=== PATIENT | male | born 1975 | race Two or more races ===

== ENCOUNTER 2024-10-10 22:16 | Inpatient (IN) | payer MEDICAID, SELFPAY ==
[2024-10-10 22:19] VITALS: BMI 34.4
--- NOTE | 2024-10-10 22:26 | PD.EDNEURO ---
Neuro Symptoms Deficit-RME/HPI General Chief Complaint: Chest Pain Stated Complaint: CP W/LEFT SIDED FACE/ARM/LEG NUMBESS TINGLING Time Seen by Provider: 10/10/24 23:01 Source: patient Arrival date/time: 10/10/24 22:16 Mode of arrival: ambulatory RME / HPI RME / HPI Narrative: DR. HERNANDEZ MAIN ED EVALUATION: 48 [id number] male with history of diabetes and hypertension presenting to the emergency department with slow onset of left arm tingling followed by left face tingling. The patient states he then had mid sternal chest pain sharp in nature without radiation. The patient took 2 baby aspirin and 15 minutes later the chest pain improved however the left-sided face arm and leg numbness continued Patient denied any weakness or difficulty speaking. He was able to take a shower and otherwise had no difficulty ambulating. LKN: 9 PM. Patient denies blood thinners. Symptoms were associated with nausea and dizziness. Prior to arrival the patient took 2 baby aspirin. No facial droop. Following all commands. GCS 15. -PMH: Hypertension, diabetes FH :mother with diabetes. -PSH: Cholecystectomy -Social history: Non-smoker nondrinker. Is not homeless -Current medications: Please see nurses notes. Losartan and metformin. Related Data Home Medications ?Medication ?Instructions ?Recorded ?Confirmed amlodipine 10 mg tablet 10 mg PO QDAY 10/10/24 10/10/24 docusate sodium 100 mg capsule 100 mg PO BID 10/10/24 10/10/24 empagliflozin 10 mg tablet 10 mg PO QDAY 10/10/24 10/10/24 (Jardiance) losartan 100 1 tab PO QDAY 10/10/24 10/10/24 mg-hydrochlorothiazide 25 mg tablet metformin 850 mg tablet 850 mg PO BID 10/10/24 10/10/24 omeprazole 20 mg capsule,delayed 20 mg PO QDAY 10/10/24 10/10/24 release Previous Rx's ?Medication ?Instructions ?Recorded aspirin 81 mg tablet,delayed 81 mg PO QDAY 30 days #30 tabs 10/12/24 release (Ecotrin Low Strength) atorvastatin 80 mg tablet 80 mg PO HS 30 days #30 tabs 10/12/24 Allergies Allergy/AdvReac Type Severity Reaction Status Date / Time No Known Allergies Allergy Verified 10/10/24 22:22 Review of Systems Review of Systems Systems Reviewed: All systems reviewed, normal except as documented Narrative Review of Systems: GEN: No fever, no chills, no weight loss EYES: No discharge, no visual changes, no pain HEENT: No ear pain, no congestion, no sore throat PULM: No shortness of breath, no cough, no congestion CV: + mid sternal chest pain, no dyspnea on exertion, no palpitations GI: + nausea, no vomiting, no diarrhea, no pain, no constipation : No frequency, no urgency and no dysuria MUSC/SKEL: No joint pain, no back pain SKIN: No rash PSYCH: No hallucinations, no depression HEME/LYMPH: No easy bleeding or bruising tendencies NEURO: No weakness, no headache, + left arm tingling followed by left face tingling, +dizziness Past Medical History Past Medical History CARDIAC: Positive Hypertension ENDOCRINE: Positive Diabetes Mellitus Type 2 OTHER HISTORY: Positive Hospitalization Surgical History SURGICAL: Positive Abdominal Surgery Social History SMOKING STATUS: Never smoker SUBSTANCE USE: does not use ALCOHOL: Never ED Exam Narrative Physical exam: PE: Blood pressure 181/98, pulse of 92. Respirations of 18, temperature 98.1, 98% on room air. GENERAL: In general the patient is awake, interactive, in an emergency department [place]. HEAD/EYES/EARS/NOSE/THROAT: normo-cephalic, atraumatic, mucus membranes are moist. No cervical tenderness palpation midline. Supple neck. CARDIOVASCULAR: regular rate and regular rhythm, no murmurs, heart sounds are not distant, strong pulses in all four extremities that are equal and symmetric bilateral upper and lower extremities, normal capillary refill. CHEST/PULMONARY: normal chest rise and fall, good air movement, clear to auscultation bilaterally, normal inspiratory to expiratory ratios without evidence of respiratory distress. ABDOMEN: soft, not tender, no masses appreciated BACK: normal range of motion without pain. NEUROLOGICAL: Decree sensation to left arm face and leg, mild decreased activities officer left hand. Normal gait. EXTREMITY: no tenderness to palpation over the long bones or large joints of the bilateral upper and lower extremities, no joint swelling, no joint erythema, no signs of trauma, no unilateral leg swelling and no peripheral edema. SKIN: warm, dry, well-perfused, no jaundice, no rash, no telangiectasias or petechia. PSYCH: calm, cooperative, no evidence of psychosis or agitation NHISS 1A: Level of Consciousness - Alert; keenly responsive + 0 1B: Ask Month and Age - Both Questions Right + 0 1C: Blink Eyes & Squeeze Hands - Performs Both Tasks + 0 2: Test Horizontal Extraocular Movements - Normal + 0 3: Test Visual [place] - No Visual Loss + 0 4: Test Facial Palsy (Use Grimace if Obtunded) - Normal symmetry + 0 5A: Test Left Arm Motor Drift - No Drift for 10 Seconds + 0 5B: Test Right Arm Motor Drift - No Drift for 10 Seconds + 0 6A: Test Left Leg Motor Drift - No Drift for 5 Seconds + 0 6B: Test Right Leg Motor Drift - No Drift for 5 Seconds + 0 7: Test Limb Ataxia (FNF/Heel-Noble) - No Ataxia + 0 8: Test Sensation - Mild-Moderate Loss: Less Sharp/More Dull + 1 9: Test Language/Aphasia - Normal; No aphasia + 0 10: Test Dysarthria - Normal + 0 11: Test Extinction/Inattention - No abnormality + 0 NIHSS Score: 1 Course Course Course Narrative: EDC: 2215:Stroke alert called 2220:FS 113 2225:To CAT scan 2310: CT scan my review --Rads official read 2305: TELENEURO Dr Cabrera, called to state that the he discussed the options for thrombolytics and at this time the patient would like to be treated only with Plavix and aspirin. The patient took 2 aspirin prior to arrival. Recommendations include permissive hypertension up to systolic blood pressure 220, 300 mg of Plavix p.o., 162 mg of aspirin p.o., and admission for admission. 2308: Plavix 300 mg, ASA 162 mg possible Lacunar infarct ASdmit permisiive hypter --EKG Quality Measures none Orders Category Date Time Status Bedside Blood Glucose NOW Care 10/10/24 22:29 Completed COVID-19 Screening Questionnaire NOW Care 10/10/24 23:58 Completed Container Repairer NOW Care 10/10/24 22:29 Completed Continuous Pulse Oximetry NOW Care 10/10/24 22:29 Completed Decision to Admit X1 Care 10/10/24 23:58 Completed EKG (ED ONLY) *Do not use* NOW Care 10/10/24 22:29 Completed In and Out Catheter NEEDED Care 10/10/24 22:29 Completed Insert IV NOW Care 10/10/24 22:29 Completed NIH Stroke Scale NOW Care 10/10/24 22:29 Completed NIH Stroke Scale now Care 10/10/24 22:29 Completed NPO NOW Care 10/10/24 22:29 Completed Nurse Swallow Screen x1 Care 10/10/24 22:29 Completed Consult to Neurology / Tele-Neurology Routine Cons 10/10/24 22:[address] angio stroke protocol Stat Exams 10/10/24 22:[address] stroke protocol Stat Exams 10/10/24 22:29 Completed EKG (ED Only) Stat Exams 10/10/24 22:29 Draft CBC Stat Lab 10/10/24 22:37 Completed Comprehensive Metabolic Panel Stat Lab 10/10/24 22:37 Completed Drug Screen,Urine Stat Lab 10/10/24 23:58 Completed Magnesium Stat Lab 10/10/24 22:37 Completed Partial Thromboplastin Time Stat Lab 10/10/24 22:37 Completed Prothrombin Time with INR Stat Lab 10/10/24 22:37 Completed Troponin I Stat Lab 10/10/24 22:37 Completed Urinalysis Stat Lab 10/10/24 23:58 Completed Urine Culture Stat Lab 10/10/24 23:58 Completed Aspirin Chew Med 10/10/24 23:07 Discontinued 162 mg PO X1 ONE Clopidogrel [Plavix] Med 10/10/24 23:07 Discontinued 300 mg PO X1 ONE Ondansetron Inj [Zofran Inj] Med 10/10/24 22:29 Discontinued 4 mg IV Q4HR PRN Potassium Chloride [K-Dur] Med 10/10/24 23:31 Discontinued 40 meq PO X1 ONE Oxygen Delivery NOW RT 10/10/24 22:29 Completed Reevaluation(s) Reevaluation #1: No worsening weakness. Time: 23:18 Vital Signs Vital signs: Vital Signs Temperature 98.1 F 10/10/24 22:28 Pulse Rate 92 10/10/24 22:28 Respiratory Rate 18 10/10/24 22:28 Blood Pressure 181/98 H 10/10/24 22:28 Pulse Oximetry (%) 98 10/10/24 22:28 Oxygen Delivery Method Room Air 10/10/24 22:28 Procedures -ED EKG Interpretation #1: Date of EK10/10/24 Time of EK:01 Rate: 80 Interpretation: Interpreted by me EKG Impression: Normal sinus rhythm and No acute ST-T changes Additional EKG comment: No S elevations or depressions. QTc normal at 419. Impression normal EKG. No previous EKG for comparison. Neuro Symptoms / Deficit MDM Narrative MDM Narrative:: DDX: Stroke, TIA, ACS, STEMI, electrolyte abnormality, drug use, doubt infectious etiology, This is a 48-year male presenting to the emergency department by car with history of diabetes and hypertension with left-sided numbness and left hand weakness who is being admitted to the hospital for workup for possible lacunar infarct. NIHSS Score: 1 While in the emergency department the patient had a CT scan that did not show an acute bleed. EKG does not show A-fib is in sinus with regular rhythm. Patient otherwise has no infectious etiology. Discussed with teleneurologist who feels at this time the patient likely may have lacunar infarct and with mutual decision making the patient did not want tPA. He is treated with Plavix and aspirin. Reevaluation:no change or worsening numbness or weakness while in emergency department prior to admission. Labs do not show elevated white count and otherwise his CMP is reassuring. INR is normal at 1.0. EK. No ST elevation [place]. Please see EKG and procedure note. 2359: DISPOSITION: Emergency Department nursing documentation was reviewed including triage complaint, associated symptoms, administration of medications, response to therapy and vital signs. Given the history, physical exam, and review of laboratory and imaging studies the patient is determined to be unsafe for discharge and is being moved into the hospital for further diagnostic tests, treatments, stabilization, and monitored response to therapy. I communicated the history, physical exam, pertinent laboratory and imaging studies to the inpatient physician. The inpatient physician has access to electronic copies of all emergency department laboratory testing and imaging studies as well as medications ordered and administered. Patient data External records reviewed:: [facility] previous records and None Clinical information provided by:: patient Social determinants that could affect healthcare access:: none Patient has the following chronic illnesses:: Diabetes, hypertension How is presenting disease/condition affected by chronic disease/condition?: exacerbated by Evaluation data The following diagnostics were reviewed and interpreted by me:: lab results, radiology exam(s) and other (specify) (EKG) Lab and/or radiology exams considered but not ordered:: None Interpretation Summary: Labs were reviewed and interpreted by me. Patient has a normal white count with a white count of 9.0. Hemoglobin stable at 15/44. Platelets normal at 167. Troponin is normal less than 0.02. CT HEAD: The patient had a CT examination of the head ordered, reviewed, and interpreted by myself while the patient actively inside the emergency department receiving diagnostic evaluation. CT images were reviewed by myself and formally read by the radiologist. CT imaging of the head was medically necessary., No active bleed. No hydrocephalus or mass effect. Diagnostic Impression: No hemorrhagic stroke. Pending radiology interpretation. CT brain head without contrast. Findings: No significant ventricular enlargement. Intra-axial or extra-axial hemorrhage density is not seen. No mass effect or midline shift Basal cisterns are not remarkable. Fourth ventricle is midline. Cranial vault intact. Impression: Negative for acute hemorrhage, mass effect or midline shift CTA carotids with intravenous contrast CTA brain, head with intravenous contrast. Findings: No significant stenosis, carotid carotid bifurcation or internal carotid artery stenoses Dominant left vertebral artery with no critical stenoses No cerebral R/O occlusion thrombus dissection or cerebral aneurysm IMPRESSION: No significant neck arterial stenoses No cerebral large vessel arterial occlusions thrombus dissection or cerebral aneurysm Consider brain MRI MRA without contrast, stroke protocol, follow-up Medications / Prescriptions Medications or Prescriptions considered but not ordered:: None Medication administrations:: Medication Administration History Discontinued Medications Aspirin (Aspirin 81 Mg Chew) 162 mg PO X1 ONE Stop: 10/10/24 23:08 Last Admin: 10/10/24 23:21 Dose: 162 mg Documented By: EDITA Aspirin (Aspirin Ec 81 Mg Tabec) 81 mg PO QDAY [facility] Stop: 11/10/24 08:59 Last Admin: 10/12/24 08:37 Dose: 81 mg Documented By: Admin: 10/11/24 09:41 Dose: 81 mg Documented By: ZURI Atorvastatin Calcium (Atorvastatin Calcium 20 Mg Tablet) 80 mg PO HS [facility] Stop: 11/10/24 20:59 Clopidogrel Bisulfate (Clopidogrel Bisulfate 75 Mg Tablet) 300 mg PO X1 ONE Stop: 10/10/24 23:08 Last Admin: 10/10/24 23:21 Dose: 300 mg Documented By: EDITA Clopidogrel Bisulfate (Clopidogrel Bisulfate 75 Mg Tablet) 75 mg PO QDAY [facility] Stop: 11/10/24 08:59 Last Admin: 10/12/24 08:37 Dose: 75 mg Documented By: Admin: 10/11/24 09:41 Dose: 75 mg Documented By: ZURI Dextrose (Dextrose 50%-Water Inj 50 Ml Syringe) 25 ml IV Q15MIN PRN PRN Reason: BG 50-70 responsive npo pt Stop: 11/10/24 00:46 Dextrose (Dextrose 50%-Water Inj 50 Ml Syringe) 50 ml IV Q15MIN PRN PRN Reason: BG <50 OR BG <70 & pt unresponsive Stop: 11/10/24 00:46 Enoxaparin Sodium (Enoxaparin Sod Inj 40 Mg/0.4 Ml Syringe) 40 mg SC QDAY [facility] Stop: 10/25/24 08:59 Last Admin: 10/12/24 08:38 Dose: 40 mg Documented By: Admin: 10/11/24 09:41 Dose: 40 mg Documented By: ZURI Glucagon (Glucagon Inj 1 Mg Vial) 1 mg IM Q15MIN PRN PRN Reason: BG <70, and no IV access Insulin Human Lispro (Insulin Lispro (Admelog) 1 Unit/0.01 Ml Unit) 0 unit SC [facility]; Protocol Stop: 11/10/24 07:29 Last Admin: 10/12/24 11:22 Dose: 1 unit Documented By: ZURI Co-signed By: JESSI Admin: 10/12/24 08:32 Dose: Not Given Documented By: JRR Non-Admin Reason: Per Protocol Admin: 10/11/24 20:31 Dose: 1 unit Documented By: POOJA Co-signed By: ASIA Admin: 10/11/24 17:16 Dose: Not Given Documented By: JRR Non-Admin Reason: Per Protocol Admin: 10/11/24 12:01 Dose: Not Given Documented By: JRR Non-Admin Reason: Per Protocol Admin: 10/11/24 09:40 Dose: Not Given Documented By: JRR Non-Admin Reason: Per Protocol Labetalol HCl (Labetalol Inj 5 Mg/Ml Vial 20 Ml) 2.5 mg IVP Q2HR PRN PRN Reason: SBP>220 and/or DBP>120 Stop: 11/10/24 01:59 Ondansetron HCl (Ondansetron Inj 2 Mg/Ml Inj 2 Ml) 4 mg IV Q4HR PRN PRN Reason: NAUSEA OR VOMITING Stop: 11/09/24 22:28 Ondansetron HCl (Ondansetron Inj 2 Mg/Ml Inj 2 Ml) 4 mg IV Q6H PRN; Protocol PRN Reason: NAUSEA OR VOMITING Stop: 11/10/24 00:37 Potassium Chloride (Potassium Chloride 20 Meq Tabcr) 40 meq PO X1 ONE Stop: 10/10/24 23:32 Last Admin: 10/10/24 23:52 Dose: 40 meq Documented By: EDITA Sennosides (Senna Tablet) 1 tab PO QDAY PRN; Protocol PRN Reason: constipation Stop: 11/10/24 00:37 As above Consultations Consultation(s) initiated? (list below): Yes Consultation #1 (Physician, Specialty, Details): hospitalist resident working under Dr. Spicer, made aware of the patient?s HPI, PMHx, lab and/or radiology results. Treatment plan was discussed. Will admit for further evaluation and management. Accepts patient for admission. Time: 22:59 Diagnosis Neuro Differential Diagnosis: subarachnoid hemorrhage and other (TIA, stroke, lacunar infarct, hypoglycemia, electrolyte abnormalities,) Most likely diagnosis given after review of the tests above:: Lacunar infarct. Admission Indicated Admission indicated?: indicated Explain why admission is indicated or not indicated:: Stroke workup. Admission Request Was there a request for admission?: Yes Admission Attestation Admission request attestation: Discussed case with [] from Hospitalist service regarding admission. Discussed patients ED course, exam findings, labs, and radiology results. The Hospitalist [agrees,declines] to accept the patient for admission. Disposition Plan Disposition Plan: Admit Critical Care Time Critical Care Time Critical Care Time: Yes Total Critical Care Time (min.): 45 Attestation: Critical Care Time: This patient required the highest level of my preparedness for sudden and emergent intervention. I provided critical care services, which included ordering, reviewing, and interpreting of laboratory studies in real time. Determining immediate treatments, planning for future treatments and observing response to therapy. Further diagnostic tests and treatments were made based on laboratory studies and response to therapy. I coordinated care with various consultants. This critical care time is separate from any other billable procedures or interventions. Discharge Plan Plan Patient Disposition: Admit Acute Care w/in Hospital Patient condition on transfer: Stable Problem List Clinical Impression: Left sided numbness, Left hand weakness, History of hypertension, History of diabetes mellitus, Acute hypokalemia
[2024-10-10 22:28] VITALS: BP 181/98; PULSE 92; RESP 18; TEMP 36.7; O2SAT 98
--- NOTE | 2024-10-10 22:28 | PC.NURSE ---
stroke consult Case # [id number]?
--- NOTE | 2024-10-10 22:29 | XR_ITS ---
Examination: CT brain head without contrast. 2-D sagittal coronal reconstructions Date and time of exam:October 10, 2024 10:32 PM INDICATIONS: Cervical collar, onset left-sided paresthesias face arm and leg today CTDI: vol (mGy):54.5 DLP: (mGycm):1186 Technique: Multiple CT axial sections of the brain have been obtained, 5 mm slice thickness. Contrast has not been administered. 2-D sagittal, coronal reconstructions have been obtained Low dose protocols were performed. One or more of the following dose reduction techniques were used; automated exposure control, adjustment of the mA and/or KV according to patient size, use of iterative reconstruction technique. Findings: No significant ventricular enlargement. Intra-axial or extra-axial hemorrhage density is not seen. No mass effect or midline shift Basal cisterns are not remarkable. Fourth ventricle is midline. Cranial vault intact. Impression: Negative for acute hemorrhage, mass effect or midline shift
--- NOTE | 2024-10-10 22:29 | XR_ITS ---
Examination: CTA carotids with intravenous contrast CTA brain, head with intravenous contrast. 2-D sagittal, coronal reconstructions. 3-D reconstructions. Exam date and time: October 03 10:37 PM INDICATIONS: Stroke alert today onset focal neurologic deficit CTDI: vol (mGy) 11.6 DLP: (mGycm) 480 Technique: Multiple CTA axial brain, head carotid images post intravenous contrast injection 75 cc, [id number]. 2-D sagittal, coronal reconstructions. 3-D reconstructions, 3-D post processing including vascular maximum intensity projection images. Low dose protocols were performed. One or more of the following dose reduction techniques were used; automated exposure control, adjustment of the mA and/or KV according to patient size, use of iterative reconstruction technique. Findings: No significant stenosis, carotid carotid bifurcation or internal carotid artery stenoses Dominant left vertebral artery with no critical stenoses No cerebral R/O occlusion thrombus dissection or cerebral aneurysm IMPRESSION: No significant neck arterial stenoses No cerebral large vessel arterial occlusions thrombus dissection or cerebral aneurysm Consider brain MRI MRA without contrast, stroke protocol, follow-up
--- NOTE | 2024-10-10 22:29 | EKG_ITS ---
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
[2024-10-10 22:53] LABS: Basophils # (Auto) 0.1 Thou/mm3 (0.0-0.2); Basophils % (Auto) 1 % (0-2.5); Eosinophils # (Auto) 0.2 Thou/mm3 (0.0-0.5); Eosinophils % (Auto) 2 % (0-10); Hematocrit 44.9 % (41.0-53.0); Hemoglobin 15.8 g/dL (13.5-16.0); Immature Granulocytes % (Auto) 0 % (0-0); Immature Granulocytes Auto 0.03 Thou/mm3 (0.00-0.00); Lymphocytes # (Auto) 2.6 Thou/mm3 (1.0-4.8); Lymphocytes % (Auto) 29 % (10-50); Mean Corpuscular HGB Conc 35.2 g/dl (31.0-37.0); Mean Corpuscular Hemoglobin 29.5 pg (25.0-35.0); Mean Corpuscular Volume 84 fL (80-100); Monocytes # (Auto) 0.9 Thou/mm3 (0.0-0.8); Monocytes % (Auto) 10 % (0-12); Neutrophils # (Auto) 5.3 Thou/mm3 (1.8-7.7); Neutrophils % (Auto) 59 % (37-80); Nucleated Red Blood Cell % 0 /100 WBC (0); Platelet Count 167 Thou/mm3 (140-440); RDW Standard Deviation 38.1 fL (35.1-43.9); Red Blood Count 5.36 Miln/mm3 (4.50-5.90)
[2024-10-10 22:56] VITALS: PULSE 80
[2024-10-10 22:59] VITALS: RESP 96
[2024-10-10 23:00] LABS: Partial Thromboplastin Time 27.3 Seconds (22.0-36.0); Prothrombin Time 11.1 Seconds (9.0-12.2)
[2024-10-10 23:12] LABS: Alanine Aminotransferase 103 U/L (10-49); Albumin, Serum 4.9 gm/dL (3.5-5.0); Albumin/Globulin Ratio 1.5 (1.2-2.2); Alkaline Phosphatase 59 U/L (46-116); Anion Gap 9 (7-16); Aspartate Amino Transferase 56 U/L (0-34); BUN/Creatinine Ratio 15 Ratio (12-20); Bilirubin,Total 0.7 mg/dL (0.3-1.2); Blood Urea Nitrogen 17 mg/dL (9-23); Calcium 9.5 mg/dL (8.3-10.6); Calcium (Corrected) 9.5 mg/dL (8.5-10.1); Chloride 100 mMol/L (98-107); Creatinine (Component) 1.1 mg/dL (0.6-1.3); Estimated Creatinine Clearance 99.7 mL/min (>60); Globulin 3.2 gm/dL (2.3-3.5); Glucose 115 mg/dL (74-106); Osmolality,Calculated 274 (275-295); Potassium 3.2 mMol/L (3.4-5.1); Sodium 136 mMol/L (136-145); Total Protein 8.1 gm/dL (5.7-8.2); Troponin I < 0.020 ng/mL (0.0-0.045); eGFR > 60 See Note
--- NOTE | 2024-10-10 23:13 | PD.TNEURO ---
Tele Neuro Consultation Consultation Date 10/10/24 Most Recent Vital Signs Last Vital Signs Temp 98.1 F 10/10/24 22:28 Pulse 80 10/10/24 22:56 Resp 18 10/10/24 22:28 BP 181/98 H 10/10/24 22:28 Pulse Ox 98 10/10/24 22:28 O2 Del Method Room Air 10/10/24 22:28 Laboratory-Coagulation Panel PT 11.1 Seconds (9.0-12.2) 10/10/24 22:37 INR 1.0 (0.9-1.3) 10/10/24 22:37 APTT 27.3 Seconds (22.0-36.0) 10/10/24 22:37 Consultation Narrative [facility] TeleNeurology Consult Services Patient Name:???favio colon Date of :???1975 Identification Number:??? Date of Service:???10/10/2024 22:28:18 Diagnosis:?R42 - Dizziness/ Vertigo/ Giddiness ?R20.2 - Paresthesia of skin Impression: ?48yo man with history of DM, HTN presents with left sided numbness and dizziness. CTA was obtained up front due to reported chest pain with onset of symptoms. ?Offered thrombolytics with patient 30% chance of reduced disability from stroke (primarily concerned about left hand strength) for small 6% risk of SICH along with rare serious allergic reactions. We discussed that thrombolytics are typically not recommended in the case of non-disabling deficits. We discussed there is no guarantee symptoms will not worsen significantly later. He felt like his present symptoms on his left nondominant side were non-disabling and declined thrombolytics after this nuanced discussion. Discussed dual antiplatelet as alternative which patient preferred. CTA pending, if negative recommend starting aspirin and plavix, permissive HTN to <220/120, and admission for stroke work up. Would recontact us urgently should he have worsening symptoms in the next couple of hours. Our recommendations are outlined below. Recommendations: ? Stroke/Telemetry Floor ? Neuro Checks ? Bedside Swallow Eval ? DVT Prophylaxis ? IV Fluids, Normal Saline ? Head of Bed 30 Degrees ? Euglycemia and Avoid Hyperthermia (PRN Acetaminophen) ? Bolus with Clopidogrel 300 mg bolus x1 and initiate dual antiplatelet therapy with Aspirin 81 mg daily and Clopidogrel 75 mg daily ? Antihypertensives PRN if Blood pressure is greater than 220/120 or there is a concern for End organ damage/contraindications for permissive HTN. If blood pressure is greater than 220/120 give labetalol PO or IV or Vasotec IV with a goal of 15% reduction in BP during the first 24 hours. ?MRI brain w/o. 2d echo Sign Out: ? Discussed with Emergency Department Provider Advanced Imaging: Advanced imaging has been ordered. Results pending. Metrics: Last Known Well: 10/10/2024 21:00:00 Dispatch Time: 10/10/2024 22:28:18 Arrival Time: 10/10/2024 22:16:00 Initial Response Time: 10/10/2024 22:33:25Symptoms: dizziness, left sided numbness/tingling. Initial patient interaction: 10/10/2024 22:45:33 NIHSS Assessment Completed: 10/10/2024 22:52:15Patient is not a candidate for Thrombolytic. Thrombolytic Medical Decision: 10/10/2024 22:58:30Patient was not deemed candidate for Thrombolytic because of following reasons: Stroke severity too mild (non-disabling) . Patient/Family declined . CT head showed no acute hemorrhage or acute core infarct. Primary Provider Notified of Diagnostic Impression and Management Plan on: 10/10/2024 23:12:06 History of Present Illness:Patient is a 48 year old Male. Patient was brought by private transportation with symptoms of dizziness, left sided numbness/tingling. 48yo man with history of DM, HTN presents with left sided numbness and dizziness. Symptoms began at 9pm with tingling in his left arm that spread throughout his face and leg. He developed chest pain and headache, however these only lasted about 20 minutes before resolving when he took a shower. The numbness and tingling on his left side has persisted. He took aspirin at home but does not normally take aspirin. No prior history of stroke. Past Medical History: ?Hypertension ?Diabetes Mellitus Medications: No Anticoagulant use? No Antiplatelet use Reviewed EMR for current medications Allergies:? Reviewed Social History: Drug Use: No Family History: There is no family history of premature cerebrovascular disease pertinent to this consultation ROS : 14 Points Review of Systems was performed and was negative except mentioned in HPI. Past Surgical History: There Is No Surgical History Contributory To Today?s Visit Examination: BP(181/98),?Pulse(92), 1A: Level of Consciousness - Alert; keenly responsive?+ 0 1B: Ask Month and Age - Both Questions Right?+ 0 1C: Blink Eyes & Squeeze Hands - Performs Both Tasks?+ 0 2: Test Horizontal Extraocular Movements - Normal?+ 0 3: Test Visual [place] - No Visual Loss?+ 0 4: Test Facial Palsy (Use Grimace if Obtunded) - Normal symmetry?+ 0 5A: Test Left Arm Motor Drift - No Drift for 10 Seconds?+ 0 5B: Test Right Arm Motor Drift - No Drift for 10 Seconds?+ 0 6A: Test Left Leg Motor Drift - No Drift for 5 Seconds?+ 0 6B: Test Right Leg Motor Drift - No Drift for 5 Seconds?+ 0 7: Test Limb Ataxia (FNF/Heel-Noble) - No Ataxia?+ 0 8: Test Sensation - Mild-Moderate Loss: Less Sharp/More Dull?+ 1 9: Test Language/Aphasia - Normal; No aphasia?+ 0 10: Test Dysarthria - Normal?+ 0 11: Test Extinction/Inattention - No abnormality?+ 0 NIHSS Score:?1 NIHSS Free Text :?decreased sensation to LT left hemibody, decreased bottle tester strength left hand, gait is entirely normal and denies dizziness while walking, speech clear, face symmetric, VF intact bilaterally Pre-Morbid Modified [place] Scale:0 Points = No symptoms at all Spoke with :?Dr. Fishman This consult was conducted in real time using interactive audio and video technology. Patient was informed of the technology being used for this visit and agreed to proceed. Patient located in hospital and provider located at home/office setting. Patient is being evaluated for possible acute neurologic impairment and high probability of imminent or life-threatening deterioration. I spent total of 40 minutes providing care to this patient, including time for face to face visit via telemedicine, review of medical records, imaging studies and discussion of findings with providers, the patient and/or family. Dr Jaya Cabrera [facility] For Inpatient follow-up with [facility] physician please call [facility] at . As we are not an outpatient service for any post hospital discharge needs please contact the hospital for assistance. If you have any questions for the [facility] physicians or need to reconsult for clinical or diagnostic changes please contact us via [facility] at .
--- NOTE | 2024-10-10 23:15 | PC.NURSE ---
pt alert and oriented came to er from home for complaints of left arm and left leg numbness and tingling that started around 9pm tonight. pt also reports numbness to left side of face. pt states was sitting down watching tv when symptoms started. pt then stood up and felt dizzy and nauseated with pressure in chest. pt states he then took some aspirin. pt reports similar symptoms of numbness to left side this past which had resolved. pt reports history of diabetes and hypertension. takes medication daily. pt currently denies any chest pain. respirations even and unlabored. pt placed on monitor. at bedside.
[2024-10-10] MEDS: ASPIRIN 81 MG CHEW 162 MG PO (23:21)
[2024-10-10] MEDS: CLOPIDOGREL BISULFATE 75 MG TABLET 300 MG PO (23:21)
[2024-10-10 23:25] VITALS: BP 168/101; PULSE 78; RESP 18; O2SAT 97
[2024-10-10] MEDS: POTASSIUM CHLORIDE 20 mEq TABCR 40 MEQ PO (23:52)
[2024-10-11] VITALS (12 sets, daily range): BP systolic 118–149; BP diastolic 65–89; PULSE 56–105; RESP 16–97; TEMP 36–36.6; O2SAT 95–98; BMI 33.9
[2024-10-11] LABS: Collection Type, Urine Voided; WBC,Urine 0 /hpf (0-5)
--- NOTE | 2024-10-11 | XR_ITS ---
Examinations: MRI Brain without intravenous contrast. MRA brain without intravenous contrast. MRA carotids without intravenous contrast 3-D vascular reconstructions Date and time of exam: October 03, 2024 at 0834 hours INDICATIONS: Stroke alert October 10, 2024, onset focal neurologic deficit, numbness left arm left-sided efface left leg beginning 9:00 PM last night Technique: Multiple axial and sagittal images of the brain have been obtained MRA brain carotid images without contrast obtained, including 3-D postprocessing, vascular maximum intensity projection images Findings: [place] is not enlarged. The optic chiasm and infundibular stalk are not remarkable. Prepontine and interpeduncular cisterns are not enlarged. No localized enlargement of the medulla or clarence. Fourth ventricle and cerebellar tonsils normal in position. Subacute hemorrhage is not seen. Fourth ventricle is midline. Mass in the cerebellopontine angle region is not evident. 7th and 8th nerve complexes exhibits symmetry. Globes are symmetrical with no retro-orbital mass. Increased white matter signal evident, punctate foci increased signal in the right frontal parietal white matter Diffusion-weighted images demonstrate no focus of restricted diffusion Mass-effect upon the ventricular system is not identified. MRA carotid images no significant carotid stenoses. MRA brain images no cerebral large vessel arterial occlusions Impression: Negative for acute infarct Demyelinating disease
[2024-10-11 00:26] LABS: Bilirubin,Urine Negative (Negative); Blood,Urine Negative (Negative); Clarity,Urine Clear (Clear/Hazy); Color,Urine Colorless (Lt Yel-Yel); Glucose, Urine 4+ (Negative); Ketones,Urine Negative (Negative); Leukocyte Esterase,Urine Negative (Negative); Nitrite,Urine Negative (Negative); Protein,Urine Negative (Neg - Trace); RBC,Urine < 1 /hpf (0-3); Squamous Epithelial Cell,Urine < 1 /hpf (0-5); Urobilinogen,Urine Negative mg/dL (0.0-1.0)
--- NOTE | 2024-10-11 00:29 | PC.NURSE ---
residents at bedside speaking with pt
--- NOTE | 2024-10-11 00:43 | ECHO_ITS ---
Transthoracic Echo Report Ht (in): 70 Wt (lb): 239 Exam Location: Portable Status: Inpatient Manufacturing Quality Engineer: CURTIS Espinosa^^^^ Indications: Procedure Performed: BP: / HR: 65 Rhythm: Sinus Technical Quality: Fair MEASUREMENTS (Male / Female) Normal Values 2D ECHO LV Diastolic Diameter PLAX 4.4 cm 4.2 - 5.9 / 3.9 - 5.3 cm LV Systolic Diameter PLAX 2.9 cm IVS Diastolic Thickness 0.9 cm 0.6 - 1.0 / 0.6 - 0.9 cm LVPW Diastolic Thickness 1.2 cm 0.6 - 1.0 / 0.6 - 0.9 cm LV Relative Wall Thickness 0.5 LVOT Diameter 1.9 cm Aortic Root Diameter 3.7 cm LA Systolic Diameter LX 3.4 cm 3.0 - 4.0 / 2.7 - 3.8 cm LA Volume Index 25.3 cm?/m? 16 - 28 cm?/m? Ascending Aorta Diameter 3.5 cm DOPPLER AV Peak Velocity 103.0 cm/s AV Peak Gradient 4.2 mmHg AV Mean Gradient 3.0 mmHg AV Velocity Time Integral 22.7 cm LVOT Peak Velocity 87.9 cm/s LVOT Peak Gradient 3.1 mmHg LVOT Velocity Time Integral 20.5 cm LVOT Cardiac Index 1606.8 cm?/min?m? AV Area Cont Eq vti 2.6 cm? AV Area Cont Eq pk 2.4 cm? MV Area PHT 8.5 cm? Mitral E Point Velocity 57.0 cm/s Mitral A Point Velocity 54.5 cm/s Mitral E to A Ratio 1.0 LV E' Lateral Velocity 7.0 cm/s Mitral E to LV E' Lateral Ratio 8.1 LV E' Septal Velocity 8.1 cm/s Mitral E to LV E' Septal Ratio 7.0 TR Peak Velocity 215.7 cm/s TR Peak Gradient 18.6 mmHg PV Peak Velocity 86.1 cm/s PV Peak Gradient 3.0 mmHg RVOT Peak Velocity 54.7 cm/s FINDINGS Left Ventricle Normal left ventricular size, wall thickness, systolic function with no obvious regional wall motion abnormalities. Normal left ventricular diastolic filling pattern for age. The ejection fraction is visually estimated at 60-65%. Right Ventricle The right ventricle is normal in size and systolic function. The estimated right ventricular systolic pressure, 21 mmHg. Left Atrium The left atrium is normal by two-dimensional, color flow and Doppler imaging with no structural abnormalities, no thrombus formation present. Right Atrium The right atrium is normal by two-dimensional imaging, color flow and Doppler imaging with no structural abnormalities, no thrombus formation present. Atrial Septum The interatrial septum is normal to color flow Doppler and agitated saline imaging. Aorta The aorta is normal by two-dimensional, color flow and Doppler interrogation. Mitral Valve Trace to mild mitral regurgitation. Aortic Valve The aortic valve is trileaflet and normal by two-dimensional, color flow and Doppler interrogation. There is no significant aortic valve regurgitation. Tricuspid Valve There is mild tricuspid valve regurgitation. Pulmonic Valve Trivial pulmonic valve regurgitation. Vessels The pulmonary artery appears normal. The inferior vena cava pulmonary and hepatic veins appear normal. Pericardium The pericardium is normal by two-dimensional imaging. There is no significant pericardial effusion. CONCLUSIONS indication: Bubble study LV appears normal with EF 60-65%. RV appears normal with RVSP 23 mmHg. IAS is normal to color flow Doppler and agitated saline imaging. Negative bubble study no evidence of intracardiac shunts detected no evidence of PFO Trace to mild mitral and tricuspid regurgitation, insignificant Sandra Latesha (Electronically Signed) Final Date: 11 October 2024 17:08
--- NOTE | 2024-10-11 00:57 | ESHP_ITS ---
Documentation for date of: 10/11/24 [facility] History of Present Illness Chief complaint: left body numbness History of present illness: The patient is a 48-year-old male with a previous medical history of hypertension, diabetes who came to the ED on 10/10/2024 due to left arm, left half of the face and left leg numbness that started approximately 9 PM. He reports that he also had chest pain. He reports taking aspirin and taking a shower after that chest pain has passed, but numbness persisted. He also reports that he had a similar episode last of numbness in the same left half of the body which resolved after approximately 50 minutes. ED course: Initial vitals 181/98, pulse 92, respiratory rate 18, afebrile, saturating well on room air. Labs showed WBC count 9.0, hemoglobin 15.8, platelets 167, INR 1.0, sodium 136, potassium 3.2, BUN 17, creatinine 1.1, glucose 115, AST 56, ALT 103, troponin I less than 0.020. UA was negative for signs of UTI. U tox pending. Imaging was negative for signs of acute stroke or large vessel occlusion. EKG showed sinus rhythm. Teleneuro was consulted, NIHSS scale was 1, patient was not a candidate for thrombolytic therapy due to nondisabling severity of stroke. Neurology discussed in depth risks and benefits of thrombolytic therapy and patient decided not to proceed with thrombolytics. In the ED he received clopidogrel 300 mg x 1, aspirin 162 mg (because he took aspirin at home) and received potassium 40 reyna equivalents x 1. Social history: Denies smoking, drinking alcohol, recreational substances. 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 Allergies: Denies Surgeries: History of appendectomy, cholecystectomy 2 months ago. Home medications: Amlodipine 10, docusate 100 twice daily, empagliflozin 10 mg daily, losartan hydrochlorothiazide daily, metformin 850 twice daily, omeprazole 20 twice daily. Patient is going to be admitted for acute stroke workup and management. Review of Systems Review of Systems Systems Reviewed: All systems reviewed, normal except as documented Past Medical History Past Medical History CARDIAC: Positive Hypertension ENDOCRINE: Positive Diabetes Mellitus Type 2 Exam Vital Signs Temp Pulse Resp BP Pulse Ox O2 Del Method 98.1 F 78 18 168/101 H 97 Room Air 10/10/24 22:28 10/10/24 23:25 10/10/24 23:25 10/10/24 23:25 10/10/24 23:25 10/10/24 23:25 Narrative Exam Physical Exam General: Awake and in no acute distress. Conversational and non-toxic appearing. HEENT: Normocephalic, atraumatic, mucous membranes moist. Heart: Regular rate and rhythm, no murmurs. Lungs: Clear to auscultation with no wheezing or crackles. Abdomen: Soft, nondistended, nontender, positive bowel sounds. ?No guarding or rebound tenderness. Neurologic: Alert, strength 5/5 on BUE and BLE, superficial sensitivity decreased in the left half of the body, including left half of the face. Extremities: No edema. Skin: No rash or ecchymoses. Results: Labs 10/10/24 22:37 10/10/24 22:37 Labs: Short CBC 10/10/24 Range/Units 22:37 WBC 9.0 (3.8-10.6) Thou/mm3 Hgb 15.8 (13.5-16.0) g/dL Hct 44.9 (41.0-53.0) % Plt Count 167 (140-440) Thou/mm3 BMP 10/10/24 22:37 Sodium 136 Potassium 3.2 L Chloride 100 Carbon Dioxide 27.0 BUN 17 Creatinine 1.1 Glucose 115 H Calcium 9.5 Cardiac Enzymes 10/10/24 Range/Units 22:37 Troponin I < 0.020 (0.0-0.045) ng/mL Liver Function 10/10/24 Range/Units 22:37 Total Bilirubin 0.7 (0.3-1.2) mg/dL AST 56 H (0-34) U/L ALT 103 H (10-49) U/L Alkaline Phosphatase 59 (46-116) U/L Albumin 4.9 (3.5-5.0) gm/dL Urine 10/10/24 Range/Units 23:58 Urine Color Colorless A (Lt Yel-Yel) Urine Clarity Clear (Clear/Hazy) Urine pH 7.0 (5.0-7.0) Ur Specific [employer] 1.020 (1.001-1.035) Urine Protein Negative (Neg - Trace) Urine Glucose (UA) 4+ A (Negative) Quality Measures Quality Measures VTE prophylaxis Medications Home Medications and Allergies Home Medications ?Medication ?Instructions ?Recorded ?Confirmed ?Type amlodipine 10 mg tablet 10 mg PO QDAY 10/10/2410/10 History docusate sodium 100 mg capsule 100 mg PO BID 10/10/24 10/10/24 History empagliflozin 10 mg tablet 10 mg PO QDAY 10/10/2409/15 History (Jardiance) losartan 100 1 tab PO QDAY 10/10/2410/10 History mg-hydrochlorothiazide 25 mg tablet metformin 850 mg tablet 850 mg PO BID 10/10/2410/10 History omeprazole 20 mg capsule,delayed 20 mg PO QDAY 5 10/10/24 History release Allergies Allergy/AdvReac Type Severity Reaction Status Date / Time No Known Allergies Allergy Verified 10/10/24 22:22 Visit Medications Aspirin (Aspirin Ec 81 Mg Tabec) 81 mg PO QDAY [facility] Stop: 11/10/24 08:59 Clopidogrel Bisulfate (Clopidogrel Bisulfate 75 Mg Tablet) 75 mg PO QDAY [facility] Stop: 11/10/24 08:59 Dextrose (Dextrose 50%-Water Inj 50 Ml Syringe) 25 ml IV Q15MIN PRN PRN Reason: BG 50-70 responsive npo pt Stop: 11/10/24 00:46 Dextrose (Dextrose 50%-Water Inj 50 Ml Syringe) 50 ml IV Q15MIN PRN PRN Reason: BG <50 OR BG <70 & pt unresponsive Stop: 11/10/24 00:46 Enoxaparin Sodium (Enoxaparin Sod Inj 40 Mg/0.4 Ml Syringe) 40 mg SC QDAY [facility] Stop: 10/25/24 08:59 Glucagon (Glucagon Inj 1 Mg Vial) 1 mg IM Q15MIN PRN PRN Reason: BG <70, and no IV access Insulin Human Lispro (Insulin Lispro (Admelog) 1 Unit/0.01 Ml Unit) 0 unit SC [facility]; Protocol Stop: 11/10/24 07:29 Labetalol HCl (Labetalol Inj 5 Mg/Ml Vial 20 Ml) 2.5 mg IVP Q2HR PRN PRN Reason: SBP>220 and/or DBP>120 Stop: 11/10/24 01:59 Ondansetron HCl (Ondansetron Inj 2 Mg/Ml Inj 2 Ml) 4 mg IV Q4HR PRN PRN Reason: NAUSEA OR VOMITING Stop: 11/09/24 22:28 Ondansetron HCl (Ondansetron Inj 2 Mg/Ml Inj 2 Ml) 4 mg IV Q6H PRN; Protocol PRN Reason: NAUSEA OR VOMITING Stop: 11/10/24 00:37 Sennosides (Senna Tablet) 1 tab PO QDAY PRN; Protocol PRN Reason: constipation Stop: 11/10/24 00:37 Discontinued Medications Aspirin (Aspirin 81 Mg Chew) 162 mg PO X1 ONE Stop: 10/10/24 23:08 Last Admin: 10/10/24 23:21 Dose: 162 mg Atorvastatin Calcium (Atorvastatin Calcium 20 Mg Tablet) 80 mg PO HS GEREMIAS Stop: 11/10/24 20:59 Clopidogrel Bisulfate (Clopidogrel Bisulfate 75 Mg Tablet) 300 mg PO X1 ONE Stop: 10/10/24 23:08 Last Admin: 10/10/24 23:21 Dose: 300 mg Potassium Chloride (Potassium Chloride 20 Meq Tabcr) 40 meq PO X1 ONE Stop: 10/10/24 23:32 Last Admin: 10/10/24 23:52 Dose: 40 meq Assessment & Plan Plan The patient is a 48-year-old male with a previous medical history of hypertension, diabetes who came to the ED on 10/10/2024 due to left arm, left half of the face and left leg numbness that started approximately 9 PM. Patient is going to be admitted for acute stroke workup and management. #Stroke rule out Patient started to experience left-sided body numbness at 9 PM on 10/11/2024. Imaging was negative for signs of acute stroke or large vessel occlusion. Patient has passed swallow screen. NIHSS 1. Plan: ? MRI ordered ? Aspirin 81 mg for 21 days ? Clopidogrel 75 mg for 21 days ? Atorvastatin 80 mg daily ? Neurologist Dr. Graf consulted ? Physical therapy evaluation ? Speech therapy and evaluation ?Echo with bubble study ordered ? Telemetry ? Head of bed elevation 30 degrees ? Maintain normothermia and euglycemia ? Permissive hypertension for 24 hours ?A1c, lipid panel, TSH ordered -neurochecks q4hr #Hypertension Plan: - will hold home BP medication in the setting of permissive hypertension for 24 hours ? Labetalol 2.5 mg if blood pressure higher than 220/120 #History of diabetes Plan: ? Sliding scale with Accu-Cheks ? Hypoglycemia protocol #Hypokalemia Initial K 3.2, received 40 mEq of K. Could be in the setting HCTZ use. Plan: - monitor CMP, replete as necessary #Elevated transaminases AST 56, ALT 103. 2 months ago he underwent cholescystectomy. Plan: - monitor daily CMP - liver US Health maintenance: FEN: cardiac. carbohydrate consistent DVT prophylaxis: lovenox 40 mg sc GI prophylaxis: none Dispo: telemetry CODE STATUS: Full code Plan of care discussed with attending Dr. Spicer. Dinorah Yusuf MD, PGY 1. Attending Provider Attestation/Addendum I attest that I was physically present for the evaluation, physical examination, lab and imaging review of the patient with the residents. I discussed the case with the residents and agree with the findings and plans of care as documented above. Patient is a 48 years old male with past medical history of hypertension, diabetes who presented to the ED with complaint of numbness and tingling on left side of his body including face, upper and lower extremity. Patient had similar symptoms about a week ago which resolved on its own in about 15 minutes. But this time, along with his symptoms he had nausea, chest pain and decided to visit the ED. In the ED, his initial blood pressure was 181/98, rest of the vitals were within normal limits. Lab results show potassium of 3.2, BUN/creatinine 17/1.1, AST 56, ALT 103. Stroke alert was called in the ED, head CT was obtained which was negative for acute hemorrhage, mass effect and midline shift. CTA head and neck did not show any intracranial blood vessel stenosis. Teleneurology was consulted, discussion was held with the patient regarding tPA, patient declined tPA and opted to restart dual antiplatelets instead. We will admit the patient for management of possible acute CVA, start him on aspirin, Plavix, high-dose statin. We will obtain physical therapy, speech therapy, echocardiography, brain MRI, hemoglobin A1c, lipid panel, TSH. We will also obtain an in-house neurology consult. Holding his home antihypertensives to allow permissive hypertension for 24 hours, we will add as needed labetalol for blood pressure more than 220/120. Started on insulin regimen for diabetes. Repleted potassium chloride 40 mill equivalent. Patient passed swallow evaluation, we will start him on low carbohydrate consistent diet. Roberta Spicer MD
[2024-10-11 01:11] LABS: Amphetamine/Methamp Scrn,U Negative (Negative); Barbiturate Screen,Urine Negative (Negative); Benzodiazepines Screen,Urine Negative (Negative); Benzoylecgonine Screen, Ur Negative (Negative); Fentanyl Screen,Urine Negative (Negative); Opiate Screen,Urine Negative (Negative); THC Screen,Urine Negative (Negative)
--- NOTE | 2024-10-11 04:06 | XR_ITS ---
Examination: Abdomen sonogram, Limited Date and time of exam: October 03, 2024 0746 hours INDICATIONS: Elevated liver function tests on laboratory examination today Technique: Real-time newman scale transabdominal sonographic images of the upper abdomen obtained. Findings: Absent gallbladder Normal common bile duct 0.2 cm Pancreas obscured by bowel gas Liver 16.1 cm fatty infiltration Normal hepatopedal portal venous flow Patent IVC IMPRESSION: Absent gallbladder Normal common bile duct Mild hepatomegaly fatty liver
[2024-10-11 05:30] LABS: Basophils % (Auto) 0 % (0-2.5); Eosinophils # (Auto) 0.1 Thou/mm3 (0.0-0.5); Eosinophils % (Auto) 2 % (0-10); Hematocrit 40.7 % (41.0-53.0); Hemoglobin 14.3 g/dL (13.5-16.0); Immature Granulocytes % (Auto) 0 % (0-0); Immature Granulocytes Auto 0.02 Thou/mm3 (0.00-0.00); Lymphocytes # (Auto) 2.4 Thou/mm3 (1.0-4.8); Lymphocytes % (Auto) 27 % (10-50); Mean Corpuscular HGB Conc 35.1 g/dl (31.0-37.0); Mean Corpuscular Hemoglobin 29.5 pg (25.0-35.0); Mean Corpuscular Volume 84 fL (80-100); Monocytes # (Auto) 0.9 Thou/mm3 (0.0-0.8); Monocytes % (Auto) 9 % (0-12); Neutrophils # (Auto) 5.6 Thou/mm3 (1.8-7.7); Neutrophils % (Auto) 62 % (37-80); Nucleated Red Blood Cell % 0 /100 WBC (0); Platelet Count 182 Thou/mm3 (140-440); RDW Standard Deviation 38.5 fL (35.1-43.9); Red Blood Count 4.84 Miln/mm3 (4.50-5.90); White Blood Count 9.1 Thou/mm3 (3.8-10.6)
[2024-10-11 06:23] LABS: Alanine Aminotransferase 82 U/L (10-49); Albumin, Serum 4.2 gm/dL (3.5-5.0); Albumin/Globulin Ratio 1.6 (1.2-2.2); Alkaline Phosphatase 49 U/L (46-116); Anion Gap 10 (7-16); Aspartate Amino Transferase 46 U/L (0-34); BUN/Creatinine Ratio 15 Ratio (12-20); Bilirubin,Total 0.7 mg/dL (0.3-1.2); Blood Urea Nitrogen 15 mg/dL (9-23); Carbon Dioxide 26.5 mMol/L (20.0-31.0); Cardiac Risk Estimate 3.9 RATIO (4.0-6.7); Chloride 105 mMol/L (98-107); Cholesterol 151 mg/dL (132-200); Estimated Creatinine Clearance 113.1 mL/min (>60); Globulin 2.6 gm/dL (2.3-3.5); Glucose 114 mg/dL (74-106); HDL Cholesterol 39 mg/dL (40-60); LDL Cholesterol,Calculated 95 mg/dL (0-130); Magnesium 1.9 mg/dL (1.6-2.6); Osmolality,Calculated 283 (275-295); Potassium 3.7 mMol/L (3.4-5.1); Sodium 141 mMol/L (136-145); Thyroid Stimulating Hormone 1.63 uIU/mL (0.55-4.78); Total Protein 6.8 gm/dL (5.7-8.2); Triglycerides 83 mg/dL (30-150); eGFR > 60 See Note
[2024-10-11 06:59] LABS: Glucose Estimated Average 146 mg/dL (80-131); Hemoglobin A1C 6.7 % Hgb (4.8-6.0)
[2024-10-11] MEDS: ASPIRIN EC 81 MG TABEC PO (09:41)
[2024-10-11] MEDS: ENOXAPARIN SOD INJ 40 MG/0.4 ML SYRINGE SC (09:41)
[2024-10-11] MEDS: CLOPIDOGREL BISULFATE 75 MG TABLET PO (09:41)
--- NOTE | 2024-10-11 11:57 | PC.SS ---
SS follow up note; Nephrology evaluation pending.
--- NOTE | 2024-10-11 11:59 | PC.SS ---
SS follow up note Nephrology Evaluation pending, patient will discharge home when medically cleared.
--- NOTE | 2024-10-11 12:24 | PC.PT ---
PT eval only. Patient is safe to ambulate to the bathroom and in the halls with no DME or assistance. RN made aware.
--- NOTE | 2024-10-11 12:42 | PC.SS ---
Patient Toño Brink is a 48 Year old male admitted for CVA. SS met with patient at bedside to verify demographic information. Patient reports he lives at home with his , Cheryl Camarena who he reports is his surrogate decision maker, [phone]. Patient reports he does not utilize any source of DME to assist with ambulation. Patient is able to complete all ADL's independently. Choice of pharmacy is [facility]. At time of discharge patient will return home, patient's will provide transportation. next of kin: , Cheryl Camarena Discharge plan: Home
--- NOTE | 2024-10-11 14:05 | ESPR_ITS ---
<Statement entered by Michael Collier MD - 10/15/24 08:12> I reviewed above note and agree with findings and plans. I have also personally examined the patient with medicine team and went over assessment and plan with medical team including geotechnical intern and resident physician. <Statement entered by Franco Colon MD - 10/11/24 14:53> Patient is a 48-year-old male admitted overnight due to left-sided numbness and tingling. Patient undergoing stroke workup. So far MRI negative for any acute stroke changes. Pending cardiac echo and neurology recommendations.. Case discussed with team. Franco Colon MD PGY3 Documentation for date of: 10/11/24 Subjective Subjective Interval history: Patient is seen and examined at bedside Patient is admitted overnight in view of numbness on left half of the body followed by dizziness. Patient reported that his numbness resolved within 20 minutes Denies any other complaints. Vitals are stable. Labs showed A1c 6.7, AST 46, ALT 82 CT head, CT angio head and neck, brain MRI with MRA came back negative for stroke Pending echocardiogram to complete stroke workup Exam Vital Signs Temp Pulse Resp BP Pulse Ox O2 Del Method 96.8 F 105 H 18 132/86 H 95 Room Air 10/11/24 12:00 10/11/24 12:00 10/11/24 12:00 10/11/24 12:00 10/11/24 12:00 10/11/24 12:00 Narrative Exam General: Awake. HEENT: Normocephalic, atraumatic, mucous membranes moist. Heart: Regular rate and rhythm, no murmurs. Lungs: Clear to auscultation with no wheezing or crackles. Abdomen: Soft, nondistended, nontender, positive bowel sounds. ?No guarding or rebound tenderness. Neurologic: Alert and oriented x3, no gross neurological deficit, and patient able to move all 4 extremities. Extremities: No edema. Skin: No rash or ecchymoses. Objective Labs 10/11/24 04:06 10/11/24 04:06 Labs: Laboratory Results - last 24 hr 10/10/24 10/10/24 10/11/24 22:37 23:58 04:06 WBC 9.0 9.1 RBC 5.36 4.84 Hgb 15.8 14.3 Hct 44.9 40.7 L MCV 84 84 MCH 29.5 29.5 MCHC 35.2 35.1 RDW Std Deviation 38.1 38.5 Plt Count 167 182 Neut % (Auto) 59 62 Lymph % (Auto) 29 27 [place] % (Auto) 10 9 Eos % (Auto) 2 2 Baso % (Auto) 1 0 Neut # (Auto) 5.3 5.6 Lymph # (Auto) 2.6 2.4 [place] # (Auto) 0.9 H 0.9 H Eos # (Auto) 0.2 0.1 Baso # (Auto) 0.1 0.0 Immature Gran # (Auto) 0.03 H 0.02 H Absolute Nucleated RBC 0.00 0.00 Immature Gran % 0 0 Nucleated RBC % 0 0 PT 11.1 INR 1.0 APTT 27.3 Sodium 136 141 Potassium 3.2 L 3.7 D Chloride 100 105 Carbon Dioxide 27.0 26.5 Anion Gap 9 10 BUN 17 15 Creatinine 1.1 1.0 Estim Creat Clear Calc 99.7 113.1 eGFR > 60 > 60 BUN/Creatinine Ratio 15 15 Glucose [address] Glu mg/dL 146 H Hemoglobin A1c 6.7 H Calculated Osmolality 274 L 283 Calcium 9.5 9.0 Corrected Calcium 9.5 9.0 Magnesium 2.0 1.9 Total Bilirubin 0.7 0.7 AST 56 H 46 H ALT 103 H 82 H Alkaline Phosphatase 59 49 Troponin I < 0.020 Total Protein 8.1 6.8 Albumin 4.9 4.2 D Globulin 3.2 2.6 Albumin/Globulin Ratio 1.5 1.6 Triglycerides 83 Cholesterol 151 LDL Cholesterol, Calc 95 HDL Cholesterol 39 L Cholesterol/HDL Ratio 3.9 L TSH 1.63 Ur Collection Type Voided Urine Color Colorless A Urine Clarity Clear Urine pH 7.0 Ur Specific [place] 1.020 Urine Protein Negative Urine Glucose (UA) 4+ A Urine Ketones Negative Urine Blood Negative Urine Nitrite Negative Urine Bilirubin Negative Urine Urobilinogen (Auto) Negative Ur Leukocyte Esterase Negative Urine RBC < 1 Urine WBC 0 Ur Squamous Epith Cells < 1 Urine Bacteria None Urine Opiates Screen Negative Urine Fentanyl Screen Negative Ur Barbiturates Screen Negative U Amphetamin/Meth Scrn Negative U Benzodiazepines Scrn Negative U Cocaine Metab Screen Negative U Marijuana (THC) Screen Negative Quality Measures Quality Measures VTE prophylaxis Assessment & Plan Assessment Current Active Medications: Generic Name Dose Route Start Last Admin Trade Name Freq PRN Reason Stop Dose Admin Aspirin 81 mg 10/11/24 09:00 10/11/24 09:41 Aspirin Ec 81 Mg Tabec PO 11/10/24 08:59 81 mg QDAY GEREMIAS Administration Clopidogrel Bisulfate 75 mg 10/11/24 09:00 10/11/24 09:41 Clopidogrel Bisulfate 75 Mg Tablet PO 11/10/24 08:59 75 mg QDAY GEREMIAS Administration Dextrose 25 ml 10/11/24 00:47 Dextrose 50%-Water Inj 50 Ml Syringe IV 11/10/24 00:46 Q15MIN PRN BG 50-70 responsive npo pt Dextrose 50 ml 10/11/24 00:47 Dextrose 50%-Water Inj 50 Ml Syringe IV 11/10/24 00:46 Q15MIN PRN BG <50 OR BG <70 & pt unresponsive Enoxaparin Sodium 40 mg 10/11/24 09:00 10/11/24 09:41 Enoxaparin Sod Inj 40 Mg/0.4 Ml Syringe SC 10/25/24 08:59 40 mg QDAY GEREMIAS Administration Glucagon 1 mg 10/11/24 00:47 Glucagon Inj 1 Mg Vial IM Q15MIN PRN BG <70, and no IV access Insulin Human Lispro 0 unit 10/11/24 07:30 10/11/24 12:01 Insulin Lispro (Admelog) 1 Unit/0.01 Ml Unit SC 11/10/24 07:29 Not Given ACHS GEREMIAS Protocol Labetalol HCl 2.5 mg 10/11/24 00:49 Labetalol Inj 5 Mg/Ml Vial 20 Ml IVP 11/10/24 01:59 Q2HR PRN SBP>220 and/or DBP>120 Ondansetron HCl 4 mg 10/11/24 00:38 Ondansetron Inj 2 Mg/Ml Inj 2 Ml IV 11/10/24 00:37 Q6H PRN NAUSEA OR VOMITING Protocol Sennosides 1 tab 10/11/24 00:38 Senna Tablet PO 11/10/24 00:37 QDAY PRN constipation Protocol Plan Patient is a 48-year-old male with a previous medical history of hypertension, diabetes who came to the ED on 10/10/2024 due to left arm, left half of the face and left leg numbness that started approximately 9 PM. Patient is going to be admitted for acute stroke workup and management. # Numbness on the left half of body, resolved # Likely TIA # Acute stroke ruled out Patient started to experience left-sided body numbness at 9 PM on 10/11/2024. Patient has passed swallow screen. NIHSS 1. Patient came to hospital within the window period of 4.5 hours, but refused tPA CT head/CT angio head and neck MRI brain with MRA did not show any acute infarct Plan: ? Telemetry ? Head of bed elevation 30 degrees ? Maintain normothermia and euglycemia ? Aspirin 81 mg and Clopidogrel 75 mg for 21 days ? Atorvastatin 80 mg daily ? Neurologist Dr. Graf consulted ? Physical therapy evaluation ? Echo with bubble study ordered - Neurochecks q4hr #Hypertension - Blood pressure at the time of admission is 181/98 mmHg - Antihypertensive medications are held in view of permissive hypertension - Will continue to monitor blood pressures and add medications as needed #History of diabetes -HbA1c during this admission is 6.7 - Patient is using metformin and Jardiance at home Plan: ? Sliding scale with Accu-Cheks ? Hypoglycemia protocol #Hypokalemia, resolved Initial K 3.2, received 40 mEq of K. Could be in the setting HCTZ use. Repeat potassium as of 10/11/2024 is within normal limits Plan: - monitor CMP, replete as necessary # Mild transaminitis, resolving AST 56, ALT 103. 2 months ago he underwent cholescystectomy. Liver ultrasound done showed no significant abnormality Plan: - Will trend ALT and AST levels for now Health maintenance: FEN: cardiac. carbohydrate consistent DVT prophylaxis: lovenox 40 mg sc GI prophylaxis: none Dispo: telemetry CODE STATUS: Full code Patient plan of care was discussed with the attending physician, Dr. Collier and senior resident Dr. Dr. Isaiah Ball, PGY1
[2024-10-11] MEDS: INSULIN LISPRO (AdmeLOG) 1 UNIT/0.01 ML UNIT SC (20:31)
--- NOTE | 2024-10-11 22:48 | ESPR_ITS ---
Documentation for date of: 10/11/24 Subjective Subjective Interval history: Patient was seen in telemetry at the bedside with his family when he was eating dinner. Denies any weakness, paresthesias, headache or dizziness. He did walk in the hallway without any support Exam - Neurology Vital Signs Temp Pulse Resp BP Pulse Ox O2 Del Method 97.0 F 95 16 128/89 H 97 Room Air 10/11/24 20:00 10/11/24 20:00 10/11/24 20:00 10/11/24 20:00 10/11/24 20:00 10/11/24 20:00 Narrative Exam GENERAL APPEARANCE: Well hydrated, well-nourished in no acute distress. HEENT: Normocephalic, atraumatic, extraocular movements intact. Pupils: Equal reacting to light and accommodation NECK: Supple, no JVD or bruits. CARDIOVASULAR: Heart: S1, S2 heard, regular without S3-S4 or murmur no rubs or gallops. LUNGS/CHEST: Clear to auscultation bilaterally. No rails, rhonchi, or wheezing. Normal inspection. ABDOMEN: Soft, nontender, with normal bowel sounds. No pulsatile masses. No rebound, rigidity, or guarding. Normal inspection and palpation. EXTREMITIES: Normal inspection and palpation. No edema, clubbing or cyanosis. SKIN: Warm and dry without rashes. Normal inspection. MUSCULOSKELETAL: No cervical, thoracic, lumbar or midline bony tenderness. Normal inspection. NEURO: Alert, awake and oriented x3. Cranial nerves: II through XII grossly intact. Speech and language: Normal with no dysarthria or dysphasia. Motor system: Tone and bulk: Normal: Strength: 5 out of 5 in all 4 extremities; No pronator drift noted. Deep tendon reflexes: 2+ bilaterally symmetrical. Plantar reflex: Downgoing bilaterally. Sensory system: Intact to all modalities of sensation bilaterally. Coordination: Intact to [id number] and [id number] test bilaterally. No ataxia, no dysmetria, or dysdiadochokinesia noted. No intention tremors noted. Gait: Normal. Toe, heel, tandem walk all are normal. Romberg: Negative. No signs of meningeal irritation noted. PSYCHIATRIC: Normal mood and affect. Objective Labs 10/12/24 05:12 10/12/24 05:12 Labs: Laboratory Results - last 24 hr 10/10/24 10/10/24 10/11/24 22:37 23:58 04:06 WBC 9.0 9.1 RBC 5.36 4.84 Hgb 15.8 14.3 Hct 44.9 40.7 L MCV 84 84 MCH 29.5 29.5 MCHC 35.2 35.1 RDW Std Deviation 38.1 38.5 Plt Count 167 182 Neut % (Auto) 59 62 Lymph % (Auto) 29 27 [place] % (Auto) 10 9 Eos % (Auto) 2 2 Baso % (Auto) 1 0 Neut # (Auto) 5.3 5.6 Lymph # (Auto) 2.6 2.4 [place] # (Auto) 0.9 H 0.9 H Eos # (Auto) 0.2 0.1 Baso # (Auto) 0.1 0.0 Immature Gran # (Auto) 0.03 H 0.02 H Absolute Nucleated RBC 0.00 0.00 Immature Gran % 0 0 Nucleated RBC % 0 0 PT 11.1 INR 1.0 APTT 27.3 Sodium 136 141 Potassium 3.2 L 3.7 D Chloride 100 105 Carbon Dioxide 27.0 26.5 Anion Gap 9 10 BUN 17 15 Creatinine 1.1 1.0 Estim Creat Clear Calc 99.7 113.1 eGFR > 60 > 60 BUN/Creatinine Ratio 15 15 Glucose [address] Glu mg/dL 146 H Hemoglobin A1c 6.7 H Calculated Osmolality 274 L 283 Calcium 9.5 9.0 Corrected Calcium 9.5 9.0 Magnesium 2.0 1.9 Total Bilirubin 0.7 0.7 AST 56 H 46 H ALT 103 H 82 H Alkaline Phosphatase 59 49 Troponin I < 0.020 Total Protein 8.1 6.8 Albumin 4.9 4.2 D Globulin 3.2 2.6 Albumin/Globulin Ratio 1.5 1.6 Triglycerides 83 Cholesterol 151 LDL Cholesterol, Calc 95 HDL Cholesterol 39 L Cholesterol/HDL Ratio 3.9 L TSH 1.63 Ur Collection Type Voided Urine Color Colorless A Urine Clarity Clear Urine pH 7.0 Ur Specific [place] 1.020 Urine Protein Negative Urine Glucose (UA) 4+ A Urine Ketones Negative Urine Blood Negative Urine Nitrite Negative Urine Bilirubin Negative Urine Urobilinogen (Auto) Negative Ur Leukocyte Esterase Negative Urine RBC < 1 Urine WBC 0 Ur Squamous Epith Cells < 1 Urine Bacteria None Urine Opiates Screen Negative Urine Fentanyl Screen Negative Ur Barbiturates Screen Negative U Amphetamin/Meth Scrn Negative U Benzodiazepines Scrn Negative U Cocaine Metab Screen Negative U Marijuana (THC) Screen Negative Assessment & Plan Assessment and plan (1) Transient ischemic attack (TIA): Status: Resolved Assessment and plan: Patient presentation is most likely consistent with a TIA. I independently reviewed the MRI and interpreted the findings. The findings are consistent with chronic small vessel ischemia rather than demyelination. Given reassurance to the patient and the family at the bedside. He does not require any further workup based on the MRI findings. Continue with aspirin 81 mg, statin and vascular risk factor reduction to prevent recurrence. He would need sleep study as an outpatient to look for obstructive sleep apnea. (2) Type 2 diabetes mellitus: Status: Chronic Assessment and plan: Under control as per the last A1c of 6.7 (3) Hypertension: Status: Chronic Assessment and plan: Continue with aggressive blood pressure management as MRI came back negative for acute stroke
[2024-10-12] VITALS (7 sets, daily range): BP systolic 109–139; BP diastolic 68–89; PULSE 59–76; RESP 14–99; TEMP 35.9–36.2; O2SAT 97–99; BMI 33.9
--- NOTE | 2024-10-12 02:15 | PC.NURSE ---
pt heart rate dropped to 50bpm, checked on pt. he was asleep at the time, pt denies any abnormal symptoms md made aware no new orders received will continue plan of care
[2024-10-12 05:49] LABS: Basophils % (Auto) 0 % (0-2.5); Eosinophils # (Auto) 0.2 Thou/mm3 (0.0-0.5); Eosinophils % (Auto) 2 % (0-10); Hematocrit 43.2 % (41.0-53.0); Hemoglobin 15.1 g/dL (13.5-16.0); Immature Granulocytes % (Auto) 0 % (0-0); Immature Granulocytes Auto 0.03 Thou/mm3 (0.00-0.00); Lymphocytes # (Auto) 2.1 Thou/mm3 (1.0-4.8); Lymphocytes % (Auto) 29 % (10-50); Mean Corpuscular Hemoglobin 29.7 pg (25.0-35.0); Mean Corpuscular Volume 85 fL (80-100); Monocytes # (Auto) 0.7 Thou/mm3 (0.0-0.8); Monocytes % (Auto) 9 % (0-12); Neutrophils # (Auto) 4.3 Thou/mm3 (1.8-7.7); Neutrophils % (Auto) 59 % (37-80); Nucleated Red Blood Cell % 0 /100 WBC (0); Platelet Count 147 Thou/mm3 (140-440); RDW Standard Deviation 38.7 fL (35.1-43.9); Red Blood Count 5.08 Miln/mm3 (4.50-5.90); White Blood Count 7.3 Thou/mm3 (3.8-10.6)
[2024-10-12 06:15] LABS: Alanine Aminotransferase 82 U/L (10-49); Albumin, Serum 4.3 gm/dL (3.5-5.0); Albumin/Globulin Ratio 1.6 (1.2-2.2); Alkaline Phosphatase 51 U/L (46-116); Anion Gap 8 (7-16); Aspartate Amino Transferase 44 U/L (0-34); BUN/Creatinine Ratio 16 Ratio (12-20); Bilirubin,Total 0.7 mg/dL (0.3-1.2); Blood Urea Nitrogen 16 mg/dL (9-23); Calcium 9.1 mg/dL (8.3-10.6); Calcium (Corrected) 9.1 mg/dL (8.5-10.1); Carbon Dioxide 25.4 mMol/L (20.0-31.0); Chloride 107 mMol/L (98-107); Estimated Creatinine Clearance 113.1 mL/min (>60); Globulin 2.7 gm/dL (2.3-3.5); Glucose 148 mg/dL (74-106); Osmolality,Calculated 283 (275-295); Phosphorous 4.1 mg/dL (2.4-5.1); Potassium 3.6 mMol/L (3.4-5.1); Sodium 140 mMol/L (136-145); eGFR > 60 See Note
[2024-10-12] MEDS: ASPIRIN EC 81 MG TABEC PO (08:37)
[2024-10-12] MEDS: CLOPIDOGREL BISULFATE 75 MG TABLET PO (08:37)
[2024-10-12] MEDS: ENOXAPARIN SOD INJ 40 MG/0.4 ML SYRINGE SC (08:38)
[2024-10-12] MEDS: INSULIN LISPRO (AdmeLOG) 1 UNIT/0.01 ML UNIT SC (11:22)
--- NOTE | 2024-10-12 14:20 | ESDS_ITS ---
<Statement entered by Michael Collier MD - 10/15/24 08:13> I reviewed above note and agree with findings and plans. I have also personally examined the patient with medicine team and went over assessment and plan with medical team including physician/internist and resident physician. Planned Discharge Date 10/12/24 DS: Providers Provider Date of admission: 10/11/24 00:28 Primary care physician: Jefry Adam MD Admitting Provider: Roberta Spicer MD Attending Provider on Admission: Michael Collier MD Consults: 10/10/24 22:29 Consult to Neurology / Tele-Neurology Routine Comment: Consulting Provider: [facility] 10/11/24 00:46 Consult to Neurology / Tele-Neurology Stat Comment: acute stroke Consulting Provider: Kole Graf Referral Physical Therapy Routine Comment: Physician Instructions: Referral Speech Therapy Routine Comment: Attending Provider on DC: India Coffman MD Discharging Provider: India Coffman MD DS: Diagnosis Problem List Completed Was Problem List Reviewed/Reconciled?: Yes Hospital Course Hospital Course Hospital course: Mr. Albarran is a 48-year-old male with a previous medical history of hypertension and diabetes presented to [facility] ED on 10/10/2024 due to left arm, left half of the face and left leg numbness and chest pain that resolved after taking aspirin. Patient was admitted to the hospital for stroke workup. In-house neurologist Dr. Graf was consulted for further workup and evaluation. Patient CT of the head was negative for acute hemorrhage, mass effect or midline shift, head CTA was negative for large vessel arterial occlusion or arterial stenosis, brain MRI with MRA was negative for acute infarct but only showed demyelinating disease. Echocardiogram was negative for bubble study. Patient's symptoms completely resolved within 24 hours and was back to baseline. Patient was started on aspirin and statin for transient ischemic attack. During hospitalization labs showed mild transaminitis therefore liver ultrasound was ordered which showed mild hepatomegaly fatty liver. Patient will need to follow up outpatient to repeat labs and will need outpatient hypercoagulability work up as well as sleep study outpatient for AVERY. Patient is hemodynamically stable and labs are within normal limits with exception of mild transaminitis to be safely discharged home to self-care. Discharge Recommendations -Follow up outpatient with your primary care within 1 week, you will be further hypercoagulable work up outpatient and will need referral to sleep study outpatient. -Follow up with Neurologist Dr. Graf within 2 weeks -You have been started on statin and aspirin, please take your medications as directed -Take all your medications as directed -If your symptoms return or worsen, please come back to the ED Hospitalization Diagnosis # TIA # Numbness on the left half of body, resolved # Acute stroke ruled out #Hypertension #History of diabete #Hypokalemia, resolved #Mild transaminitis, resolving Assessment and plan discussed with my attending physician Dr. Nando Coffman (PGY-1)- Internal medicine resident Time Spent with Patient Time attestation: Total time spent providing and/or coordinating discharge services: Time spent: Greater than 30 minutes Exam Vital Signs Temp Pulse Resp BP Pulse Ox O2 Del Method 97.0 F 60 17 109/71 97 Room Air 10/12/24 12:00 10/12/24 12:00 10/12/24 12:00 10/12/24 12:00 10/12/24 12:00 10/12/24 12:00 Narrative Exam GENERAL: A&Ox3 . Awake, Not in acute distress NEURO: no focal neurological deficits noted HEENT: Atraumatic, Normocephalic. mucous membranes moist. Eyes open, symmetrical, & clear HEART: Normal Heart Sounds LUNGS: Clear to auscultation with no wheezing or crackles. ABDOMEN: soft, non-distended, non-tender, bowel sounds heard, no guarding or r ebound tenderness SKIN: No Rash or ecchymoses EXTREMITIES: No edema, tenderness, able to move all 4 extremities, pedal pulses palpated Discharge Plan Plan Patient Disposition: HOME (Self Care) Patient condition on transfer: Stable Care Plan Goals: -Follow up outpatient with your primary care within 1 week, you will be further hypercoagulable work up outpatient and will need referral to sleep study outpatient. -Follow up with Neurologist Dr. Graf within 2 weeks -You have been started on statin and aspirin, please take your medications as directed -Take all your medications as directed -If your symptoms return or worsen, please come back to the ED Prescriptions/Referrals Prescriptions/Med Rec: New aspirin [Ecotrin Low Strength] 81 mg Tablet,Delayed Release (Dr/Ec) 81 mg PO QDAY 30 Days Qty: 30 3RF atorvastatin 80 mg tablet 80 mg PO HS 30 Days Qty: 30 3RF Continued metformin 850 mg tablet 850 mg PO BID Jardiance 10 mg tablet 10 mg PO QDAY omeprazole 20 mg capsule,delayed release(DR/EC) 20 mg PO QDAY losartan-hydrochlorothiazide 100-25 mg tablet 1 tab PO QDAY amlodipine 10 mg tablet 10 mg PO QDAY docusate sodium 100 mg capsule 100 mg PO BID Referrals: Jefry Adam MD [Primary Care Provider] - Patient/Caregiver Discharge Instructions Education Materials: ED TIA: Transient Ischemic Attack Print Language: Greek Stand Alone Forms: [facility] Award Info., Patient Portal Info Letter Discharge Order Discharge Orders: Discharge (Routine); Ordered 10/12/24 Ordered By: India Coffman Quality Discharge Quality Measures VTE prophylaxis
== END 2024-10-12 14:00 | disposition home or self-care (01) | DRG 47 ==
LOC: SERX 23:59 → SERHOLD 10-11 01:27 → S2NX 10-11 02:05
PROVIDERS: Admitting Provider Student in an Organized Health Care Education/Training Program; Emergency Provider Emergency Medicine; PCP Family Medicine; Visit Provider Internal Medicine
DX: G45.9 Transient cerebral ischemic attack, unspecified (principal); E87.6 Hypokalemia; E11.9 Type 2 diabetes mellitus without complications; I10 Essential (primary) hypertension; K76.0 Fatty (change of) liver, not elsewhere classified; Z90.49 Acquired absence of other specified parts of digestive tract; Z79.899 Other long term (current) drug therapy; Z79.84 Long term (current) use of oral hypoglycemic drugs
CPT/HCPCS: 36415; 70450; 70496; 70498; 70544; 76705; 80053; 80061; 80307; 81001; 83036; 83735; 84100; 84443; 84484; 85025; 85610; 85730; 87086; 93005; 93306; 97161; 99291; A4649; J1650; J1815; Q9967; A9270